=== PATIENT | male | born 1990 | race African-American/Black ===

== ENCOUNTER 2024-10-02 23:18 | Emergency (ER) | payer MEDICAID ==
[~2024-10-02] VITALS: Ht 180.3 cm; Wt 104.0 kg
[2024-10-03 00:18] VITALS: TEMP 37.1; O2SAT 100
[2024-10-03] MEDS ORDERED: BO1 TP (00:58)
[2024-10-03] MEDS: IBUPROFEN 600MG TABLET PO ONE (01:11)
[2024-10-03 01:29] VITALS: BP 129/56; PULSE 97; RESP 18; O2SAT 97
== END 2024-10-03 01:28 | disposition home or self-care (01) ==
LOC: ER 23:49
DX: S90.415A Abrasion, left lesser toe(s), initial encounter (principal); W57.XXXA Bitten or stung by nonvenomous insect and other nonvenomous arthropods, initial encounter; Y93.89 Activity, other specified; Y92.89 Other specified places as the place of occurrence of the external cause; Y99.8 Other external cause status
CPT/HCPCS: 99282